=== PATIENT | female | born 1940 | race Two or more races ===

== ENCOUNTER 2022-11-21 11:40 | Emergency (ER) | payer OTHER ==
[~2022-11-21] VITALS: Ht 157.5 cm; Wt 68.0 kg
[2022-11-21] MEDS ORDERED: TOPROL XL25 M1 (11:52)
[2022-11-21] MEDS ORDERED: SIMETHICONE80 MG (11:54)
[2022-11-21] MEDS ORDERED: SIMVASTATIN5 MG (11:54)
[2022-11-21] MEDS ORDERED: KAPVAY0.1 MG (11:54)
[2022-11-21] MEDS ORDERED: GLIMEPIRIDE1 MG (11:54)
[2022-11-21] MEDS ORDERED: METFORMIN HCL500 M3 (11:55)
== END 2022-11-21 15:48 | disposition home or self-care (01) ==
LOC: ER 11:40
DX: K29.70 Gastritis, unspecified, without bleeding (principal); I10 Essential (primary) hypertension; E11.9 Type 2 diabetes mellitus without complications; Z79.84 Long term (current) use of oral hypoglycemic drugs

== ENCOUNTER 2022-11-25 19:50 | Emergency (ER) | payer OTHER ==
[~2022-11-25] VITALS: Ht 165.1 cm; Wt 77.1 kg
[~2022-11-25 19:50] MED LIST: GLIMEPIRIDE1 MG; KAPVAY0.1 MG; METFORMIN HCL500 M3; SIMETHICONE80 MG; SIMVASTATIN5 MG; TOPROL XL25 M1
[2022-11-25] MEDS ORDERED: LEVSIN/SL0.125 MG SL (23:27)
[2022-11-25] MEDS ORDERED: CARAFATE1 GM PO (23:27)
[2022-11-25] MEDS ORDERED: PEPCID AC20 MG PO (23:27)
== END 2022-11-25 23:35 | disposition home or self-care (01) ==
LOC: ER 19:50
DX: K29.70 Gastritis, unspecified, without bleeding (principal); E11.9 Type 2 diabetes mellitus without complications; Z79.84 Long term (current) use of oral hypoglycemic drugs; I10 Essential (primary) hypertension

== ENCOUNTER 2022-12-09 12:38 | Emergency (ER) | payer OTHER ==
[~2022-12-09] VITALS: Ht 157.5 cm; Wt 72.6 kg
[~2022-12-09 12:38] MED LIST changes: +CARAFATE1 GM PO; +LEVSIN/SL0.125 MG SL; +PEPCID AC20 MG PO
[2022-12-09] MEDS ORDERED: LISINOPRIL10 MG (13:59)
[2022-12-09] MEDS ORDERED: GABAPENTIN600 MG (14:00)
== END 2022-12-10 00:37 | disposition designated cancer center or children's hospital (05) ==
LOC: ER 12:38
DX: R22.41 Localized swelling, mass and lump, right lower limb (principal); I77.89 Other specified disorders of arteries and arterioles; Z20.822 Contact with and (suspected) exposure to COVID-19